=== PATIENT | female | born 2000 | race African-American/Black ===

== ENCOUNTER 2019-10-13 17:29 | Emergency (ER) | payer SELFPAY ==
[~2019-10-13] VITALS: Ht 167.6 cm; Wt 70.0 kg
[2019-10-13 17:58] VITALS: BP 125/60
[2019-10-13] MEDS ORDERED: DIPHTH,PERTUSS(ACELL),TET TOX 0.5 ML DISP.SYRIN. VAX IM ONE (18:15)
[2019-10-13] MEDS ORDERED: SULF1TAB24 PO (18:21)
[2019-10-13] MEDS ORDERED: ACET-704 PO (18:21)
--- NOTE | 2019-10-13 18:22 | PHYS DOC ---
Past Medical History Past Medical History: No Pertinent History Past Surgical History: No Surgical History Smoking Status: Current Every Day Smoker Additional Information: 5-6 CIGS/DAY Alcohol Use: None Adult General Chief Complaint Chief Complaint: WOUND CHECK HPI HPI Patient is a 19 year old female who presents with a wound on the right lateral foot that began a month ago after she stepped on a piece of glass. Patient denies the glass being embed in her foot. Review of Systems Review of Systems Constitutional: Denies fever or chills [] Musculoskeletal: Denies back pain or joint pain [] Integument: Reports wound to the right lateral foot Neurologic: Denies headache, focal weakness or sensory changes [] All other systems were reviewed and found to be within normal limits, except as documented in this note. Allergies Allergies Allergies Coded Allergies Type Severity Reaction Last Updated Verified No Known Drug Allergies 10/13/19 No Physical Exam Physical Exam Constitutional: Well developed, well nourished, no acute distress, non-toxic appearance. [] Skin: Right base of fifth metatarsal with an area of induration approximately 3 x 3 cm with a scabbed up center. The area is fluctuant and is surrounded with trace cellulitis. Neurovascular exam is intact to the foot. Back: No tenderness, no CVA tenderness. [] Extremities: No tenderness, no cyanosis, no clubbing, ROM intact, no edema. [] Neurologic: Alert and oriented X 3, normal motor function, normal sensory function, no focal deficits noted. [] Psychologic: Affect normal, judgement normal, mood normal. [] Current Patient Data Vital Signs Vital Signs Date Time Temp Pulse Resp B/P (MAP) Pulse Ox O2 Delivery O2 Flow Rate FiO2 10/13/19 17:58 98.1 93 18 125/60 (81) 95 Room Air 98.1 EKG EKG [] Radiology/Procedures Radiology/Procedures Indication: abscess right lateral foot Procedure: The patient was positioned appropriately. Local anesthesia was not applicable. An incision was then made over the apex of the lesion with an 11 blade and small amount of yellow bloody material was expressed. The drainage cavity was irrigated and covered with sterile gauze. The patients tetanus status updated as needed. The patient tolerated the procedure well. Complications: none.[] Course & Med Decision Making Course & Med Decision Making Pertinent Labs and Imaging studies reviewed. (See chart for details) This is a 19-year-old female patient presenting to the ED today with an abscess to the right lateral foot that began a month ago after she stepped on a piece of glass. The abscess was drained by me. I did request patient to do x-rays to make sure there is no foreign object in that region, she declined. She was discharged to home on Bactrim. Tetanus was updated. Dragon Disclaimer Dragon Disclaimer This electronic medical record was generated, in whole or in part, using a voice recognition dictation system. Departure Departure Impression: Primary Impression: Foot abscess, right Disposition: HOME, SELF-CARE Condition: STABLE Referrals: NO PCP (PCP) follow up with your doctor in 1-2 weeks Patient Instructions: Abscess, Care After Additional Instructions: You have an abscess to the right foot that was drained. Please wash the area twice a day, soak it in warm water with Epsom salts twice a day. Take the prescribed antibiotics until completed. Scripts Acetaminophen With Codeine (TYLENOL WITH CODEINE #3 TABLET) 1 Each Tablet 1 TAB PO PRN Q6HRS PRN for pain MDD 4 Tablet(s), #12 TAB 0 Refills Prov: VON LORENZO APRN 10/13/19 Sulfamethoxazole/Trimethoprim (BACTRIM DS TABLET) 1 Each Tablet 1 TAB PO BID for 10 Days, #20 TAB 0 Refills Prov: VON LORENZO APRN 10/13/19 VON LORENZO APRN Oct 13, 2019 18:22
== END 2019-10-13 18:30 | disposition home or self-care (01) ==
LOC: ER 17:29
DX: L02.611 Cutaneous abscess of right foot (principal); F17.210 Nicotine dependence, cigarettes, uncomplicated
CPT/HCPCS: 10060; 90471; 90715; 99283

== ENCOUNTER 2020-06-28 13:10 | Emergency (ER) | payer MEDICAID ==
[~2020-06-28] VITALS: Ht 167.6 cm; Wt 70.9 kg
[~2020-06-28 13:10] MED LIST: ACET-704 PO; SULF1TAB24 PO
[2020-06-28 14:04] VITALS: BP 113/72
--- NOTE | 2020-06-28 14:14 | PHYS DOC ---
Past Medical History Past Medical History: No Pertinent History Past Surgical History: No Surgical History Smoking Status: Current Every Day Smoker Alcohol Use: None General Adult EDM: Chief Complaint: FOOT INJURY PAIN HPI: HPI: Patient is a 19 year old female who presents to the ED today complaining of a callus on the left foot that she has had for months. Review of Systems: Review of Systems: Constitutional: Denies fever or chills. [] Musculoskeletal: Denies back pain or joint pain. [] Integument: Reports callus to the left foot Neurologic: Denies headache, focal weakness or sensory changes. [] Psychiatric: Denies depression or anxiety. [] Heart Score: Risk Factors: Risk Factors: DM, Current or recent (<one month) smoker, HTN, HLP, family history of CAD, obesity. Risk Scores: Score 0 - 3: 2.5% MACE over next 6 weeks - Discharge Home Score 4 - 6: 20.3% MACE over next 6 weeks - Admit for Clinical Observation Score 7 - 10: 72.7% MACE over next 6 weeks - Early Invasive Strategies Allergies: Allergies: Allergies Coded Allergies Type Severity Reaction Last Updated Verified No Known Drug Allergies 10/13/19 No Physical Exam: PE: Constitutional: Well developed, well nourished, no acute distress, non-toxic appearance. [] Skin: Warm, dry, left great toe mid metatarsal with a callus formation roughly 3 x 2 cm with no drainage. No signs of infection. Neurovascular exam is intact to the left foot. Back: No tenderness, no CVA tenderness. [] Extremities: No tenderness, no cyanosis, no clubbing, ROM intact, no edema. [] Neurologic: Alert and oriented X 3, normal motor function, normal sensory function, no focal deficits noted. [] Psychologic: Affect normal, judgement normal, mood normal. [] Current Patient Data: Vital Signs: Vital Signs Date Time Temp Pulse Resp B/P (MAP) Pulse Ox O2 Delivery O2 Flow Rate FiO2 06/28/20 14:04 97.7 87 18 113/72 (86) 99 Room Air 97.7 EKG: EKG: [] Radiology/Procedures: Radiology/Procedures: [] Course & Med Decision Making: Course & Med Decision Making Pertinent Labs and Imaging studies reviewed. (See chart for details) This is a 19-year-old female patient presenting to the ED today with a callus on the left great toe. Patient was provided a deaf interpreter for follow-up Coni Disclaimer: Coni Disclaimer: This electronic medical record was generated, in whole or in part, using a voice recognition dictation system. Departure Departure Impression: Primary Impression: Callus of foot Disposition: 01 DC HOME SELF CARE/HOMELESS Condition: STABLE Referrals: NO PCP (PCP) TREY COREY DPJennifer follow up in one week Patient Instructions: Corns and Calluses-SportsMed Additional Instructions: You have a callus formation on your left great toe. Please contact the provided deaf interpreter and follow-up next week. VON LORENZO [employer] Jun 28, 2020 14:14
== END 2020-06-28 14:33 | disposition home or self-care (01) ==
LOC: ER 13:10
DX: L84 Corns and callosities (principal); F17.200 Nicotine dependence, unspecified, uncomplicated
CPT/HCPCS: 99281